=== PATIENT | male | born 1990 | race Asian ===

== ENCOUNTER 2018-07-01 14:53 | Emergency (ER) | payer BC ==
[~2018-07-01] VITALS: Ht 165.1 cm; Wt 65.8 kg
--- NOTE | 2018-07-01 15:45 | NUR ---
Dr caro at the bedside for MSE.
[2018-07-01 16:21] LABS: BASOPHILS % (AUTO) 0.4 % (0.0-2.0); EOSINOPHILS # (AUTO) 0.4 K/uL (0.0-0.7); EOSINOPHILS % (AUTO) 3.3 % (0.0-7.0); HEMATOCRIT 42.5 % (36.7-47.1); HEMOGLOBIN 14.7 g/dL (12.5-16.3); LYMPHOCYTES # (AUTO) 2.7 K/uL (20.0-40.0); LYMPHOCYTES % (AUTO) 22.1 % (20.5-51.5); MEAN CORPUSCULAR HGB CONC 35 g/dL (32.5-36.3); MEAN CORPUSCULAR VOLUME 92.4 fL (73.0-96.2); MONOCYTES # (AUTO) 1.4 K/uL (2.0-10.0); MONOCYTES % (AUTO) 11.6 % (0.0-11.0); NEUTROPHILS # (AUTO) 7.8 K/uL (1.8-8.9); NEUTROPHILS % (AUTO) 62.6 % (38.5-71.5); PLATELET COUNT (AUTO) 298 K/uL (152-348); WHITE BLOOD COUNT (AUTO) 12.5 K/uL (3.6-10.2)
[2018-07-01 16:22] LABS: POTASSIUM 3.8 mmol/L (3.5-5.1)
[2018-07-01 16:33] LABS: *BILIRUBIN,URIN NEGATIVE (NEGATIVE); *BLOOD, URINE 1+ (NEGATIVE); *CLARITY,URINE SLIGHTLY CLOUDY (CLEAR); *COLOR,URINE YELLOW (YELLOW); *KETONES,URINE TRACE (NEGATIVE); *PROTEIN,URINE 1+ (NEGATIVE); *UROBILINOGEN,URINE 0.2 E.U./dl (NORMAL); LEUKOCYTE ESTERASE ,URINE NEGATIVE (NEGATIVE); NITRITE, URINE NEGATIVE (NEGATIVE); PH,URINE 5.5 (5.0-8.0); UGLUCOSE NEGATIVE (NEGATIVE)
[2018-07-01 16:33] LABS: BILIRUBIN,DIRECT 0.1 mg/dL (0.0-0.2); BILIRUBIN,TOTAL 0.4 mg/dL (0.2-1.0); TOTAL PROTEIN, SERUM 8.2 g/dL (6.4-8.2)
[2018-07-01 16:41] LABS: BACTERIA,URINE RARE /HPF (NONE SEEN); SQUAMOUS EPITHELIAL CELL,UR FEW /HPF (NONE SEEN); WBC,URINE 0-3 /HPF (0-3)
[2018-07-01 16:42] LABS: CALCIUM OXALATE CRYSTALS,UR FEW /HPF (NONE SEEN)
--- NOTE | 2018-07-01 17:39 | NUR ---
Pt signed consent for IV contrast, placed in the chart.
[2018-07-01] MEDS ORDERED: IV NORMAL SALINE 250 ML IV ONE (17:40)
[2018-07-01] MEDS ORDERED: IOHEXOL 300MG/ML 100 ML INFUS..BTL ONE (17:40)
[2018-07-01] MEDS ORDERED: SWABABLE VALVE TRANSFER SET EA MC ONE (17:40)
[2018-07-01] MEDS ORDERED: NORMAL SALINE FLUSH 10 ML DISP.SYRIN ONE (17:40)
--- NOTE | 2018-07-01 17:44 | NUR ---
Pt out of ER for CT.
--- NOTE | 2018-07-01 18:03 | NUR ---
Pt back from CT scan, awaiting results.
--- NOTE | 2018-07-01 18:30 | NUR ---
HARDEEP Adame spoke to Dr Forrest().
[2018-07-01 18:43] VITALS: BP 119/77
[2018-07-01] MEDS ORDERED: CIPROFLOXACIN HCL 250 MG TABLET ONE (18:43)
[2018-07-01] MEDS ORDERED: CIPROFLOXACIN HCL 250 MG TABLET PO ONE (18:45)
--- NOTE | 2018-07-01 18:53 | NUR ---
IV removed. Catheter intact and site benign. Pressure and 4x4 gauze applied to site. No bleeding noted.
--- NOTE | 2018-07-01 18:54 | NUR ---
Patient discharged to home in stable conditon. Written and verbal after care instructions given. Patient verbalizes understanding of instructions.
== END 2018-07-01 18:54 | disposition home or self-care (01) ==
LOC: ER 14:53
DX: K50.00 Crohn's disease of small intestine without complications (principal)
CPT/HCPCS: 36415; 74021; 74177; 76700; 80048; 80076; 81001; 83690; 85025; 99285; A4663; J3490; J7050; Q9967